=== PATIENT | male | born 1990 | race African-American/Black ===

== ENCOUNTER 2017-09-12 07:52 | Emergency (ER) | payer OTHER ==
[~2017-09-12] VITALS: Ht 170.2 cm; Wt 84.0 kg
[2017-09-12 08:00] VITALS: BP 147/91
[2017-09-12] MEDS ORDERED: AMLO5TAB4 PO (08:04)
== END 2017-09-12 09:26 | disposition left against medical advice (07) ==
LOC: ER 07:52
DX: I10 Essential (primary) hypertension (principal); R61 Generalized hyperhidrosis; F12.10 Cannabis abuse, uncomplicated
CPT/HCPCS: 99281; Z7610